=== PATIENT | female | born 1965 | race Hispanic/Latino ===

== ENCOUNTER 2016-06-06 13:44 | Emergency (ER) | payer OTHER ==
[~2016-06-06] VITALS: Ht 152.4 cm; Wt 54.0 kg
[~2016-06-06 13:44] MED LIST: ACET325T51 PO; AMLO10TA5 PO; IBUP800T28 PO; LORA-303 PO
[2016-06-06 13:57] VITALS: BP 125/79; PULSE 80; RESP 14; O2SAT 100
== END 2016-06-06 15:37 | disposition left against medical advice (07) ==
LOC: SED 13:44
DX: M25.519 Pain in unspecified shoulder (principal); Z53.21 Procedure and treatment not carried out due to patient leaving prior to being seen by health care provider

== ENCOUNTER 2016-08-29 19:05 | Emergency (ER) | payer OTHER ==
[~2016-08-29] VITALS: Ht 152.4 cm; Wt 54.5 kg
[2016-08-29 19:14] VITALS: BP 143/87; PULSE 96; RESP 16; O2SAT 100
--- NOTE | 2016-08-29 19:58 | ED.REPORT ---
HPI-Extremity Problem Lower Date of Service Aug 29, 2016 ED Provider: Leo Justice Pt is a 50 y/o female w/ a hx of ostearthritis and chronic knee pain presenting to the ED c/o bilateral knee pain, left more than right onset 1 year ago. She denies recent injury, recent x-rays. She had a left knee surgery 1 year ago which was the last time imaging was performed. She has been taking Tylenol with no relief. She denies fever, chills, nausea, vomiting, numbness or weakness of the legs. Nursing Notes Stated Complaint: KNEE PAIN Chief Complaint: Extremity Trauma Nursing Notes Reviewed: Yes Allergies: Coded Allergies: No Known Allergies (Verified Allergy, Unknown, 08/29/16) Scheduled Amlodipine (Norvasc) 10 Mg Tablet 10 MG PO DAILY Scheduled PRN Acetaminophen (Acetaminophen) 325 Mg Tablet 325 MG PO Q4H PRN PRN For Pain Ibuprofen (Ibuprofen) 800 Mg Tablet 800 MG PO Q8H PRN PRN For Pain Lorazepam (Ativan) 1 Mg Tablet 1 MG PO TID PRN PRN For Anxiety General Time Seen by MD: 19:55 Chief Complaint Other (bilat knee pain) Hx Obtained From: Patient, Coach Driver Arrived By: Walk-in Onset Occurred: More than a week ago... (>6 months) Symptom Duration: Since onset Location: : Knee left: Knee right Quality: Painful Severity: Current: Moderate Severity: Maximum: Moderate Exacerbated by: Range of motion Recent Healthcare: Recent testing, Previous diagnosis, Previous surgery, Prior workup Similar Sx Previous: Yes Past Medical History Past Medical History anemia uterine fibroids Chronic knee pain Reports: Hyperlipidemia, Hypertension Reports: Depression Past Surgical History Arthroscopy Meniscectomy Tubal ligation Total endoscopic hysterectomy with right salpingectomy and removal of a portion of the left fallopian tube on 01/01/16 Family History Noncontributory Smoking History Never Smoker Social History Alcohol Use: Denies alcohol use Drug Use: Denies drug use Other Social History: , Lives with children, Local resident Occupation lives with Ambulatory Status Independent Review of Systems Constitutional: Denies: Chills, Fever Musculoskeletal: Reports: Joint pain Skin: Denies Rash, Denies Swelling Complete sys rev & neg: except as marked. Physical Exam Initial Vital Signs Vital Signs (First) Date Time Temp Pulse Resp B/P Pulse Ox O2 Delivery O2 Flow Rate FiO2 08/29/16 19:14 36.5 96 16 143/87 100 Room Air Initial VS: Reviewed, Vital signs normal Head / Eyes: Atraumatic, Normocephalic, PERRL ENT: Mucous membranes moist, Conjunctiva normal, No scleral icterus Neck: Supple, Full range of motion Respiratory: Breath sounds normal, Clear to auscultation, No respiratory distress Cardiovascular: Regular rate & rhythm, Heart sounds normal, Intact distal pulses Abdomen / GI: Soft, Non-tender, No guarding, No rebound, No distention Upper Extremities: Vascular intact, Neuro intact, No swelling, No tenderness Skin: Warm, Dry, No cyanosis Neurologic: Alert, Oriented, Nonfocal Psychiatric: Mood/affect normal, Behavior normal, Normal thought content Lower Extremity / Pelvis / MS: Atraumatic, No deformity, Neurologic intact, Vascular intact, No ligamentous injury, Tendon function NL Mild pain with ROM of the left knee Interpretation & Diagnostics Lab Results Interpretation Test 08/29/16 21:16 D-Dimer 0.59mg/L FEU (<0.50) Hold Corea Top Tube Received (Received) X-Ray Interpretation Xray Interpretation: IMPRESSION: No visualized acute fracture or dislocation. However, if clinical concern and/or pain persist, short interval imaging followup in 7-10 days is recommended, as occult injury cannot be definitively excluded. Dictated by: Susie Virk M.D. on 08/29/2016 at 21:09 Approved by: Susie Virk M.D. on 08/29/2016 at 21:11 Study Performed: 3 view X-Ray Ordered: Knee left Interpretation / Wet Read by: Interpret - Radiologist US Focused Lower Ext Venous Exam Performed by: Allied health pract Exam Interpreted by: Radiologist Indication: Leg pain right Interpretation: No evid deep vein thromb Re-Eval/Medical Decision Med Decision/Clinical Course No signs of septic arthritis. She has a full pain-free range of motion without effusion. No signs of acute arterial insufficiency. DVT was ruled out. X-ray rule out fracture. She most likely has arthritis. She will be placed on a short course of opiates. She was offered crutches. Orthopedic referral. Routine opiate aftercare warnings were given. Re-Evaluation/Progress : Time of Eval: 01:49 Re-Evaluation/Progress Note: Pt rechecked. Informed pt of plan for treatment. Pt understands and agrees with plan for treatment. F/U and RTER warnings given. All questions addressed. Counseled Regarding: Diagnosis, Need for follow-up, When/why to return to ED Discharge & Departure Impression: Primary Impression: Contusion of left knee Encounter type: initial encounter Qualified Code: S80.02XA - Contusion of left knee, initial encounter Additional Impression: Arthritis Disposition: Home Discharge Condition All VS Reviewed: Yes Condition: Stable Patient Instructions: Contusion (ED) Additional Instructions: The x-ray showed no fracture. The ultrasound showed no blood clot. I suspect the cause of your pain is arthritis. Take 1-2 [place] every 6 hours as needed for severe pain. Do not drive, drink alcohol, or consume Acetaminophen when taking [place]. Follow-up with your doctor next week. Return to the emergency department for new or worsening symptoms. La radiografa no mostr ninguna fractura. La ecografa no mostr ningn co gulo sanguneo. Sospecho que la causa de schuster dolor es la artritis. [place] 1-2 Han[place] cada 6 horas segn sea necesario para el dolor alex. No conduzca, roselyn alcohol, o consuma acetaminofn cuando est tomando Han[place]. Alysha un seguimiento con schuster mdico la prxima semana. Vuelva al departamento de emergencias para detectar sntomas nuevos o que empeoren. Referrals: Tegan German MD (PCP) Scribe Attestation Portions of this note were transcribed by Gordy Ford. I, Dr. Justice personally performed the history, physical exam and medical decision-making; I reviewed and confirmed the accuracy of the information in the transcribed note. Signed by Alonso Garibay, 08/29/16 - 2099 copies to: Tegan German MD, Todd P DO Aug 29, 2016 19:58 GORDY FORD Aug 29, 2016 20:48
[2016-08-29] MEDS ORDERED: oxyCODONE-Acetamin 5-325 mg Tablet PO ONE (20:55)
--- NOTE | 2016-08-29 21:12 | DRSVH ---
PROCEDURE: X-RAY LEFT KNEE, THREE VIEWS ([id number]) INDICATIONS: left knee pain TECHNIQUE: 3 views of the knee were acquired. COMPARISON: [facility], CR, XR KNEE 1 OR 2VW LT, 01/23/2015, 16:12. [facility], [facility]NEE LT WO CON, 07/11/2015, 11:55. FINDINGS: Bones: No fractures or dislocations. No suspicious bony lesions. Curvilinear radiodensity noted ov erlying the posterior aspect of the joint space, likely external to the patient. Soft tissues: No joint effusion. No suspicious soft tissue calcifications. IMPRESSION: No visualized acute fracture or dislocation. However, if clinical concern and/or pain pe rsist, short interval imaging followup in 7-10 days is recommended, as occult injury cannot be defini tively excluded. Dictated by: Susie Virk M.D. on 08/29/2016 at 21:09 Approved by: Susie Virk M.D. on 08/29/2016 at 21:11
[2016-08-29 21:45] VITALS: BP 106/69; PULSE 100; RESP 18; O2SAT 98
[2016-08-30] VITALS: BP 142/73; PULSE 85; RESP 18; O2SAT 100
[2016-08-30 01:00] VITALS: BP 159/79; PULSE 76; RESP 18; O2SAT 99
[2016-08-30 02:00] VITALS: BP 126/79; PULSE 73; RESP 18; O2SAT 98
[2016-08-30 02:26] VITALS: BP 122/76; PULSE 75; RESP 18; O2SAT 99
--- NOTE | 2016-08-30 07:18 | DRSVH ---
PROCEDURE: US VEINOUS LEG DUPLEX UNILATERAL, LEFT INDICATIONS: 50-year-old female with left knee and calf pain. TECHNIQUE: Real-time imaging, as well as color and pulse Doppler interrogation, were performed of the lower extr emity deep veins from the inguinal ligament to the popliteal fossa. COMPARISON: None. FINDINGS: Preliminary interpretation rendered by [facility]. The deep veins are normally compressible, and free of intraluminal thrombus. Color and pulse Doppler demonstrate normal phasic intraluminal flow. There is normal augmentation response to distal compre ssion maneuver. IMPRESSION: No sonographic evidence for left lower extremity deep venous thrombosis. No significant discrepancy with preliminary [facility] report. Dictated by: Dev Chatman M.D. on 08/30/2016 at 7:14 Approved by: Dev Chatman M.D. on 08/30/2016 at 7:17
== END 2016-08-30 02:30 | disposition home or self-care (01) ==
LOC: SED 19:05
DX: S80.02XA Contusion of left knee, initial encounter (principal); X58.XXXA Exposure to other specified factors, initial encounter; Y93.89 Activity, other specified; Y92.89 Other specified places as the place of occurrence of the external cause; Y99.8 Other external cause status; M17.0 Bilateral primary osteoarthritis of knee; I10 Essential (primary) hypertension; E78.5 Hyperlipidemia, unspecified; Z98.890 Other specified postprocedural states

== ENCOUNTER 2016-09-22 22:03 | Emergency (ER) | payer OTHER ==
[~2016-09-22] VITALS: Ht 147.3 cm; Wt 56.8 kg
[2016-09-22 22:14] VITALS: BP 144/82; PULSE 86; RESP 16; O2SAT 100
--- NOTE | 2016-09-22 23:51 | ED.REPORT ---
HPI-General Illness Date of Service Sep 22, 2016 ED Provider: Dr. Patrick Pt is a 50 year old female with a hx of arthritis, depression, HTN, and hyperlipidemia presenting to the ED complaining of intermittent bilateral knee, hand, wrist, and thumb pain onset 3 days ago. She reports that the pain is exacerbated by movement. Pt has been unable to sleep for the past 3 days. Denies fever, trauma, SOB, chest pain, nausea, diarrhea. She called to make an appointment at [facility] but they do not have any openings this week. She denies any other medical history, allergies, or taking any pain medications. Nursing Notes Stated Complaint: LEG AND HAND PAIN Chief Complaint: General Complaint Nursing Notes Reviewed: Yes Allergies: Coded Allergies: No Known Allergies (Verified Allergy, Unknown, 09/22/16) Scheduled Amlodipine (Norvasc) 10 Mg Tablet 10 MG PO DAILY Scheduled PRN Acetaminophen (Acetaminophen) 325 Mg Tablet 325 MG PO Q4H PRN PRN For Pain Ibuprofen (Ibuprofen) 800 Mg Tablet 800 MG PO Q8H PRN PRN For Pain Lorazepam (Ativan) 1 Mg Tablet 1 MG PO TID PRN PRN For Anxiety Naproxen (Naprosyn) 500 Mg Tablet 500 MG PO BID PRN PRN For Pain General Time Seen by MD: 23:50 Chief Complaint Other (Joint pain) Hx Obtained From: Patient Arrived By: Walk-in Sudden in Onset?: No Onset Occurred: 3 days ago Symptom Duration: Intermittent Location: : Hand left: Hand right: Knee left: Knee right: Wrist left: Wrist right Quality: Painful Severity: Current: Mild Severity: Maximum: Moderate Recent Healthcare: No recent doctor visit, No recent hospitalization Similar Sx Previous: No Past Medical History Past Medical History arthritis anemia uterine fibroids Chronic knee pain Reports: Hyperlipidemia, Hypertension Reports: Depression Past Surgical History Arthroscopy Meniscectomy Tubal ligation Total endoscopic hysterectomy with right salpingectomy and removal of a portion of the left fallopian tube on 01/01/16 Family History Noncontributory Smoking History Never Smoker Social History Alcohol Use: Denies alcohol use Drug Use: Denies drug use Other Social History: , Lives with children, Local resident Occupation lives with Ambulatory Status Independent Review of Systems Full Review of Systems Constitutional: Denies: Fever Respiratory: Denies: Shortness of breath Cardiovascular: Denies: Chest pain GI: Denies: Diarrhea, Nausea, Vomiting Musculoskeletal: Reports: Joint pain Complete sys rev & neg: except as marked. Physical Exam Vital Signs Vital Signs Date Time Temp Pulse Resp B/P Pulse Ox O2 Delivery O2 Flow Rate FiO2 09/22/16 22:14 37.2 86 16 144/82 100 Room Air Initial VS: Reviewed General/Constitutional: Well-developed, Well-nourished Head / Eyes: Atraumatic, Normocephalic, PERRL ENT: Mucous membranes moist, Conjunctiva normal, No scleral icterus Respiratory: Breath sounds normal, Clear to auscultation, No respiratory distress Cardiovascular: Regular rate & rhythm, Heart sounds normal, Intact distal pulses Skin: Warm, Dry, No cyanosis Neurologic: Alert, Oriented, Nonfocal Psychiatric: Mood/affect normal, Behavior normal, Normal thought content Wrist / Hand: No erythema, Neurologic intact, Vascular intact Left Wrist: Positive: Tenderness present... (Moderate), Negative: Joint effusion present Right Hand: Negative: Joint effusion present Left Hand: Negative: Joint effusion present No synovitis. Osteoarthritis appearance in hands. Lower Extremity / Pelvis / MS: No erythema, Neurologic intact, Vascular intact Right Knee: Positive: Tenderness present... (Moderate), Negative: Joint effusion present, Pre-patellar effusion Left Knee: Positive: Tenderness present... (Moderate), Negative: Joint effusion present, Pre-patellar effusion Interpretation & Diagnostics Lab Results Interpretation Result Diagram: 09/22/16 2337 09/22/16 2337 Test 09/22/16 23:37 White Blood Count 6.1th/mm3 (3.8-10.1) Red Blood Count 4.04mil/mm3 (3.90-5.20) Hemoglobin 10.9g/dL (12.0-15.6) Hematocrit 33.6% (35.0-46.0) Mean Corpuscular Volume 83.2fL (81-100) Mean Corpuscular Hemoglobin 27.0pg (27.0-35.0) Mean Corpuscular Hemoglobin Concent 32.4% (32.0-37.0) Red Cell Distribution Width 14.3% (12.3-15.4) Platelet Count 177bil/L (150-400) Neutrophils (%) (Auto) 59.7% (40-74) Lymphocytes (%) (Auto) 28.3% (14-46) Monocytes (%) (Auto) 8.3% (4-12) Eosinophils (%) (Auto) 2.0% (0-5) Basophils (%) (Auto) 1.5% (0-3) Erythrocyte Sedimentation Rate 33mm/hr (0-32) Sodium Level 138mEq/L (134-144) Potassium Level 3.7mEq/L (3.5-5.2) Chloride Level 101mEq/L (97-108) Carbon Dioxide Level 23mmol/L (18-29) Blood Urea Nitrogen 13mg/dL (6-24) Creatinine 0.45mg/dL (0.57-1.00) Estimat Glomerular Filtration Rate 213mL/min (>59) Glucose Level 87mg/dL (60-99) Uric Acid 3.5mg/dL (2.6-7.2) Calcium Level 9.4mg/dL (8.5-10.1) Total Bilirubin 0.3mg/dL (0.0-1.2) Aspartate Amino Transf (AST/SGOT) 35U/L (0-50) Alanine Aminotransferase (ALT/SGPT) 41U/L (0-32) Alkaline Phosphatase 134U/L (25-150) Total Protein 7.6g/dL (6.4-8.4) Albumin 4.5g/dL (3.4-5.0) Hold Corea Top Tube Received (Received) Re-Eval/Medical Decision Med Decision/Clinical Course 50-year-old presents with arthritis fairly widespread and hands wrist knees. This all appears to be osteoarthritis not inflammatory in character. She has a mildly elevated sedimentation rate, and an AMA and rheumatoid factor currently pending. Discharged with Naprosyn twice a day. Follow-up with PCP in the office. Previously been given opioids from the emergency department, but these were not renewed. Time of Eval: 01:51 Patient Status: Condition improved Re-Evaluation/Progress Note: Discussed plan for discharge. Pt understands and agrees. Counseled Regarding: Diagnosis, Lab results, Need for follow-up, When/why to return to ED Discharge & Departure Primary Impression: Osteoarthritis Osteoarthritis location: unspecified site Osteoarthritis type: unspecified Qualified Code: M19.90 - Unspecified osteoarthritis, unspecified site Disposition: Home Discharge Condition All VS Reviewed: Yes Condition: Improved Additional Instructions: Quay parece ser artritis debido al desgaste, glenn tengo laboratorios de procesamiento que ayudar a evaluar que ms. Estos resultados estarn disponibles para schuster mdico en la oficina. Comience Naprosyn dos veces al da con los alimentos. Consulte a schuster mdico esta semana. Regresar si hay problemas inmediatos. This appears to be arthritis due to wear and tear, but I have labs processing that will help to evaluate that further. These results will be available to your doctor in the office. Begin Naprosyn twice daily with food. Up with your doctor this week. Return if any immediate problems. Referrals: Tegan German MD (PCP) Scribe Attestation Portions of this note were transcribed by Marjorie Walsh. I, Dr. Patrick personally performed the history, physical exam and medical decision-making; I reviewed and confirmed the accuracy of the information in the transcribed note. Signed by: Alonso Baldwin, 09/22/2016 at 0147. copies to: Tegan German MD, Christopher W MD Sep 22, 2016 23:51 MARJORIE WALSH Sep 23, 2016 00:03
[2016-09-22 23:57] LABS: BASOPHILS % (AUTO) 1.5 % (0-3); MONOCYTES % (AUTO) 8.3 % (4-12); Mean Corpuscular Volume 83.2 fL (81-100); NEUTROPHILS % (AUTO) 59.7 % (40-74); Platelet Count 177 bil/L (150-400)
[2016-09-23] MEDS ORDERED: NAPR500T PO (00:08)
== END 2016-09-23 01:54 | disposition home or self-care (01) ==
LOC: SED 22:03
DX: M19.90 Unspecified osteoarthritis, unspecified site (principal); I10 Essential (primary) hypertension; E78.5 Hyperlipidemia, unspecified
CPT/HCPCS: 36415; 80053; 84550; 85025; 85651; 86038; 86430; 96372; 99284; J1885